=== PATIENT | male | born 1995 | race Caucasian/White ===

== ENCOUNTER → 2022-02-19 08:42 | Outpatient (BNVA) | payer MEDICARE, MEDICAID, SELFPAY | PROVIDERS: PCP Family Medicine; Visit Provider Nurse Practitioner Family | DX: E71.40 Disorder of carnitine metabolism, unspecified (principal); G40.909 Epilepsy, unspecified, not intractable, without status epilepticus | CPT/HCPCS: 99212 ==

== ENCOUNTER → 2023-03-05 10:03 | Outpatient (BNVA) | payer MEDICARE, MEDICAID, SELFPAY | PROVIDERS: PCP Family Medicine; Visit Provider Nurse Practitioner Family | DX: G40.909 Epilepsy, unspecified, not intractable, without status epilepticus (principal); E71.40 Disorder of carnitine metabolism, unspecified | CPT/HCPCS: 99212 ==

== ENCOUNTER 2024-06-30 10:46 | Outpatient (AMB) | payer MEDICARE, MEDICAID, SELFPAY ==
--- NOTE | 2024-06-30 10:47 | MHC.OFFVIS ---
Vital Signs 06/30/24 10:49 Height 5 ft Weight 127 lb 6 oz BMI 24.9 BP 115/80 Blood Pressure Location Lt brachial Position Sitting Pulse 79 Pulse Source Pulse Oximeter Temp 97 F Pulse Oximetry (%) 97 Oxygen Delivery Method Room Air Intake Visit Reasons: 1 year follow-up -[place] -Confirmed Service Center Representative Required: No Allergies No Known Allergies Allergy (Verified 06/30/24 10:51) HPI Comments Details: 28 y/o male patient presents with [facility] nursing staff for follow up of seizure. [facility] NO seizure since last year. Patient is on Depakote 250 mg q 4pm and 500 mg q 8pm. The Depakote level is 107.6 on 02/26/23. Pt continues to see his psychiatrist and is on zoloft 25 mg daily, risperdal 1 mg BID and no PRN needed. His psychiatrist is planning to d/c sertraline as of Jul 10 He still has some behavior personality issues, impulsive, irritable, spontaneous He sleeps well on most days but there are days he cannot sleep. 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 Social History Household Members: Caregiver Alcohol intake: never Patient Tobacco Use Status: Never used Tobacco Physical Exam Vital Signs: Last Vital Signs Temp 97 F 06/30/24 10:49 Pulse 79 06/30/24 10:49 BP 115/80 06/30/24 10:49 Pulse Ox 97 06/30/24 10:49 Oxygen Delivery Method Room Air 06/30/24 10:49 BMI result Body Mass Index 24.9 Const General: cooperative Nutritional Appearance: average body habitus Neck Neck: Yes full ROM and Yes supple Neuro Gait exam (Neuro): Normal gait present Motor exam (neuro): 5/5 motor strength present throughout, Pronator motor function not present and no tremor noted Psych Appearance: grossly normal Attitude: cooperative Assessment & Plan Assessment & Plan (1) Epilepsy, unspecified, not intractable, without status epilepticus: Code(s): G40.909 - Epilepsy, unspecified, not intractable, without status epilepticus Category: Medical Qualifiers: Epilepsy type: unspecified Qualified Code(s): G40.909 - Epilepsy, unspecified, not intractable, without status epilepticus Plan Advised patient and the nursing staff to continue Depakote 250 mg q 4 pm and 500 mg q 8 pm. Lab results for review. Coding Level of Care Code Est Pt Level 4 (03819) Complex EM visit Add On G2211 Diagnoses Nonintractable epilepsy without status epilepticus, unspecified epilepsy type G40.909 Epilepsy type: unspecified
[2024-06-30 10:49] VITALS: BP 115/80; PULSE 79; TEMP 36.1; O2SAT 97; BMI 24.9
== END 2024-06-30 11:13 | disposition home or self-care (01) ==
PROVIDERS: PCP Family Medicine; Visit Provider Psychiatry & Neurology Neurology
DX: G40.909 Epilepsy, unspecified, not intractable, without status epilepticus (principal)
CPT/HCPCS: 99214; G2211

== ENCOUNTER → 2024-06-30 10:46 | Outpatient (BNVA) | payer MEDICARE, MEDICAID, SELFPAY | PROVIDERS: PCP Family Medicine; Visit Provider Psychiatry & Neurology Neurology | DX: G40.909 Epilepsy, unspecified, not intractable, without status epilepticus (principal) | CPT/HCPCS: 99212 ==

== ENCOUNTER 2025-06-29 10:58 | Outpatient (AMB) | payer MEDICARE, MEDICAID, SELFPAY ==
[2025-06-29 11:00] VITALS: BP 112/82; PULSE 86; O2SAT 97; BMI 25.0
--- NOTE | 2025-06-29 11:00 | A.OFFVIS_ITS ---
Vital Signs 06/29/25 11:00 Height 5 ft Weight 128 lb BMI 25.0 BP 112/82 Blood Pressure Location Lt brachial Pulse 86 Pulse Source Pulse Oximeter Pulse Oximetry (%) 97 Oxygen Delivery Method Room Air Intake Visit Reasons: 1 year follow-up Intake Note: Follow up Non-intractable epilepsy without status epilepticus, unspecified epilepsy type Medical And Health Services Manager Required: No Accompanied by: Staffs from [facility] Allergies No Known Allergies Allergy (Verified 06/29/25 11:00) Medication List - Last Reconciled 06/29/25 by Denia Hernandez MD acetaminophen 325 mg PO Q6H PRN ammonium lactate 12% topical ascorbic acid (vitamin C) ER 0 mg PO DAILY PRN atomoxetine 60 mg PO QAM bacitracin zinc topical clotrimazole 1% sprays topical divalproex ER 500 mg PO DAILY divalproex ER 250 mg PO DAILY docusate sodium 0 mg PO ferrous sulfate (FeroSul) 0 mg PO fluoride (sodium) 0.05% 10 mL dental DAILY guaifenesin 200 mg PO Q4H PRN guanfacine 10 mg PO BID hydrocortisone 2.5% 1 appl topical BID PRN loratadine (Allergy Relief (loratadine)) 10 mg PO DAILY nystatin topical DAILY omeprazole 20 mg PO DAILY polyethylene glycol 3350 (Miralax) 17 grams PO DAILY risperidone 0.5 mg PO BID risperidone (Risperdal) 1 mg PO BID sennosides (senna) 8.6 mg PO DAILY sodium chloride 0.65% (Deep Sea Nasal) sprays intranasal sodium fluoride-pot nitrate 1.1-5 % (Denta 5000 Plus Sensitive) 1 inch dental BID HPI Comments Details: 28 y/o male patient presents with [facility] nursing staff for follow up of seizure. Pt's history was given by [facility]. NO seizure since last year. Patient is on Depakote 250 mg q 4pm and 500 mg q 8pm. The Depakote level is 94.1 on 11/15. CMP normal 11/15 Pt continues to see his psychiatrist risperdal 1 mg BID and no PRN needed. He still has some behavior personality issues, impulsive, irritable, spontaneous He sleeps well on most days but there are days he cannot sleep. 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 Social History Household Members: Caregiver Alcohol intake: never Patient Tobacco Use Status: Never used Tobacco Physical Exam Vital Signs: Last Vital Signs Pulse 86 06/29/25 11:00 BP 112/82 06/29/25 11:00 Pulse Ox 97 06/29/25 11:00 Oxygen Delivery Method Room Air 06/29/25 11:00 BMI result Body Mass Index 25.0 Const General: cooperative Nutritional Appearance: average body habitus Neck Neck: Yes full ROM and Yes supple Neuro Gait exam (Neuro): Normal gait present Motor exam (neuro): 5/5 motor strength present throughout, Pronator motor function not present and no tremor noted Psych Appearance: grossly normal Attitude: cooperative Assessment & Plan Assessment & Plan (1) Epilepsy, unspecified, not intractable, without status epilepticus: Code(s): G40.909 - Epilepsy, unspecified, not intractable, without status epilepticus Category: Medical Qualifiers: Epilepsy type: unspecified Qualified Code(s): G40.909 - Epilepsy, unspecified, not intractable, without status epilepticus Plan Advised patient and the nursing staff to continue Depakote 250 mg q 4 pm and 500 mg q 8 pm. Lab results reviewed encourage patient to be go to Day program regularly F/u psychiatry Seizure form filled Coding Level of Care Code Est Pt Level 4 (21139) Diagnoses Nonintractable epilepsy without status epilepticus, unspecified epilepsy type G40.909 Epilepsy type: unspecified
== END 2025-06-29 11:45 | disposition home or self-care (01) ==
LOC: HO.HSMS 10:59
PROVIDERS: PCP Family Medicine; Visit Provider Psychiatry & Neurology Neurology
DX: G40.909 Epilepsy, unspecified, not intractable, without status epilepticus (principal)
CPT/HCPCS: 99214

== ENCOUNTER → 2025-06-29 10:58 | Outpatient (BNVA) | payer MEDICARE, MEDICAID, SELFPAY | PROVIDERS: PCP Family Medicine; Visit Provider Psychiatry & Neurology Neurology | DX: G40.909 Epilepsy, unspecified, not intractable, without status epilepticus (principal); R46.89 Other symptoms and signs involving appearance and behavior | CPT/HCPCS: 99212 ==